=== PATIENT | male | born 1970 | race African-American/Black ===

== ENCOUNTER 2022-10-19 13:30 | Outpatient (REF) | payer MEDICAID, SELFPAY ==
--- NOTE | ~2022-10-19 | XR_ITS ---
EXAMINATION: XR LUMBOSACRAL SPINE CLINICAL INFORMATION: Low back pain. COMPARISON: 10/23/2021 TECHNIQUE: Three views of the lumbosacral spine. FINDINGS: There are 5 nonrib-bearing lumbar vertebra. L5 pars defects are present. No significant spondylolisthesis is seen. There is significant disc space narrowing seen at the L5-S1 level with marginal sclerosis and spurring. There appears be some mild disc space narrowing at the L3-L4 level with marginal spurring. Facet arthropathy is seen L4-L5 on the right and L5-S1 bilaterally. Pedicles intact. Sacroiliac joints unremarkable. No significant change from previous study. XR/XR lumbar spine 2-3V IMPRESSION: Bilateral L5 pars defects. Lumbar spondylosis as described.
== END 2022-10-19 13:31 | disposition home or self-care (01) ==
LOC: HO.XRAY 13:30
PROVIDERS: PCP Internal Medicine; Visit Provider Internal Medicine
DX: M54.50 Low back pain, unspecified (principal); M79.606 Pain in leg, unspecified
CPT/HCPCS: 72100

== ENCOUNTER 2022-11-12 15:22 | Outpatient (REF) | payer MEDICAID, SELFPAY ==
[2022-11-12 19:28] LABS: Vitamin D 25-OH Total 24.8 ng/mL (>30)
== END 2022-11-12 15:23 | disposition home or self-care (01) ==
LOC: HO.CHCLDS 15:22
PROVIDERS: Visit Provider Internal Medicine
DX: M43.06 Spondylolysis, lumbar region (principal)
CPT/HCPCS: 36415; 82306

== ENCOUNTER 2022-11-17 10:18 | Outpatient (REF) | payer MEDICAID, SELFPAY ==
--- NOTE | ~2022-11-17 | MM_ITS ---
EXAMINATION: BONE DENSITOMETRY CLINICAL INDICATION: Spondylolysis, lumbar region. COMPARISON: This is the patient's baseline examination. TECHNIQUE: Using a [employer] DXA System (software version: 13.1) manufactured by [employer], dual-energy x-ray absorptiometry was performed of the lumbar spine and left hip. The images are of good technical quality. Summary results are attached. FINDINGS: LEFT FEMUR, NECK: BMD 1.074 g/cm2, Z-score -0.4, T-score 0.0, normal. LEFT FEMUR, TOTAL: BMD 1.188 g/cm2, Z-score -0.1, T-score 0.6, normal. AP SPINE L1-L2 (excluding L3 and L4): The data of L1-L4 has been changed to exclude the L3 and L4 vertebral bodies, because degenerative sclerosis at these levels may cause overestimation of lumbar spine density. BMD 1.479 g/cm2, Z-score 1.6, T-score 2.3, normal. IDENTIFIED RISK FACTORS: Low calcium intake, history of fracture (adult), alcohol 3 or more units per day. HISTORY OF FRACTURE: Other. MEDICATIONS: Vitamin D. MM/XR DEXA axial skeleton IMPRESSION: 1. DIAGNOSIS: Normal bone density based on the lowest T-score value of 0.0 in the femoral neck applying World Health Organization criteria. 2. 10-YEAR FRACTURE RISK PREDICTION, FRAX: According to the guidelines, FRAX calculation should only be performed on patients in the osteopenia bone density category. Therefore, FRAX was not performed on this patient. 3. Treatment Recommendations: NOF guidelines recommend consideration for treatment in postmenopausal women and men age 50 and older presenting with the following: -A hip or vertebral (clinical or morphometric) fracture. -T-score less than or equal to -2.5 at the femoral neck or spine after appropriate evaluation to exclude secondary causes. -Low bone mass at the hip or spine and a 10-year fracture probability by FRAX of greater than or equal to 3% for hip fracture or greater than or equal to 20% for major osteoporotic fracture based on the [place] adapted WHO algorithm. 4. Other Recommendations: All treatment decisions require clinical judgment and consideration of individual patient factors, including patient preferences, comorbidities, previous drug use, risk factors not captured in the FRAX model (e.g. frailty, falls, vitamin D deficiency, increased bone turnover, interval significant decline in bone density) and possible under or overestimation of fracture risk by FRAX. FUTURE SCAN RECOMMENDATION: People with diagnosed cases of osteoporosis or at high risk for fracture should have regular bone mineral density tests. For patients eligible for Medicare, routine testing is allowed once every 2 years. The testing frequency can be increased to one year for patients who have rapidly progressing disease, those who are receiving or discontinuing medical therapy to restore bone mass, or have additional risk factors.
== END 2022-11-17 10:19 | disposition home or self-care (01) ==
LOC: HO.MAMMO 10:18
PROVIDERS: PCP Internal Medicine; Visit Provider Internal Medicine
DX: Z13.820 Encounter for screening for osteoporosis (principal); M43.06 Spondylolysis, lumbar region
CPT/HCPCS: 77080

== ENCOUNTER 2023-03-31 15:24 | Outpatient (REF) | payer MEDICAID, SELFPAY ==
[2023-04-01 08:49] LABS: Syphilis Screen Nonreactive (Nonreactive)
[2023-04-01 09:13] LABS: HBsAGNum1 0.22 S/CO (0.00-0.99); HIV AB/AG Nonreactive (Nonreactive); HIV Num 1 0.05 S/CO (0.00-0.99); Hepatitis B Surface Antigen Negative (Negative); ~HepC Num1 0.14 S/CO (0.00-0.79); ~Hepatitis C Antibody Nonreactive (Nonreactive)
== END 2023-03-31 15:25 | disposition home or self-care (01) ==
LOC: HO.CHCLDS 15:24
PROVIDERS: Visit Provider Family Medicine
DX: Z11.4 Encounter for screening for human immunodeficiency virus [HIV] (principal); Z20.2 Contact with and (suspected) exposure to infections with a predominantly sexual mode of transmission
CPT/HCPCS: 36415; 86780; 86803; 87340; 87389; 87661

== ENCOUNTER 2023-03-31 16:31 | Outpatient (REF) | payer MEDICAID, SELFPAY ==
[2023-04-05 23:44] LABS: Trichomonas vag. RNA Ur Male Not Detected (Not Detected)
== END 2023-03-31 16:32 | disposition home or self-care (01) ==
LOC: HO.CHCLNP 16:31
PROVIDERS: Visit Provider Family Medicine
DX: Z20.2 Contact with and (suspected) exposure to infections with a predominantly sexual mode of transmission (principal)
CPT/HCPCS: 36415; 87661

== ENCOUNTER 2023-07-28 09:36 | Outpatient (REF) | payer MEDICAID, SELFPAY ==
--- NOTE | ~2023-07-28 | XR_ITS ---
EXAMINATION: XR BILATERAL HIPS CLINICAL INFORMATION: Bilateral hip pain. COMPARISON: Lumbar spine radiographs of 10/19/2022. Hip and lumbar spine radiographs of 10/23/2021. TECHNIQUE: AP and frog-lateral views of each hip. FINDINGS: Degenerative changes in the imaged lower lumbar spine. Left hip alignment is preserved. Minimal degenerative changes in the left hip. Mild degenerative changes in the right hip with mild joint space narrowing and hypertrophic change. Mild degenerative changes in the bilateral sacroiliac joints. XR/XR hip LT min 2V IMPRESSION: 1. Mild degenerative changes in the right hip. 2. Minimal degenerative changes in the left hip.
--- NOTE | ~2023-07-28 | XR_ITS ---
EXAMINATION: XR BILATERAL HIPS CLINICAL INFORMATION: Bilateral hip pain. COMPARISON: Lumbar spine radiographs of 10/19/2022. Hip and lumbar spine radiographs of 10/23/2021. TECHNIQUE: AP and frog-lateral views of each hip. FINDINGS: Degenerative changes in the imaged lower lumbar spine. Left hip alignment is preserved. Minimal degenerative changes in the left hip. Mild degenerative changes in the right hip with mild joint space narrowing and hypertrophic change. Mild degenerative changes in the bilateral sacroiliac joints. XR/XR hip RT min 2V IMPRESSION: 1. Mild degenerative changes in the right hip. 2. Minimal degenerative changes in the left hip.
--- NOTE | ~2023-07-28 | FL_ITS ---
EXAMINATION: XR FLUOROSCOPY UPPER GI WITH AIR CLINICAL INFORMATION: Reflux. Midsternal discomfort while swallowing COMPARISON: None TECHNIQUE: Fluoroscopic air contrast upper GI examination was performed utilizing standard techniques with thin and thick barium and effervescent granules. Numerous spot images were obtained. FINDINGS: Dual and single contrast images of the esophagus demonstrate normal caliber, contour, and mucosal pattern. No evidence of stricture, mass, or ulcerations identified. Esophageal peristalsis was mildly disorganized. There is smooth mild narrowing of the GE junction that may represent either mild achalasia versus a mild benign stricture. No evidence of hiatus hernia identified. Gastroesophageal reflux present up to the thoracic inlet. Dual contrast and single contrast images of the stomach demonstrated a normal contour. Multiple small areas of contrast pooling are noted throughout the body and fundus of the stomach that may represent small superficial aphthous ulcers. No masses are present. Mild rugal fold thickening. There is prominence of the mucosal area gastricae. Contrast freely passed into the gastric antrum and duodenal bulb without delay. Single and air-contrast images of the duodenal bulb demonstrate no abnormality. The duodenal sweep has a normal appearance, course, and mucosal fold appearance. No malrotation. The imaged proximal jejunum has a normal fold pattern and caliber. FLUOROSCOPY TIME: 3 minutes 20 seconds Number of Spot Images: 12 Number of Cine: 9 DOSE AREA PRODUCT: 2390 uGy-m2 (microgray-meter squared) FL/FL barium swallow IMPRESSION: 1. There is mild narrowing of the GE junction which may represent mild achalasia. A short segment benign stricture could have a similar appearance. 2. Mild esophageal dysmotility. 3. Multiple small areas of contrast pooling in the body and fundus of the stomach that may represent small superficial aphthous ulcers. Thickening of the rugal gastric folds. Prominence of the mucosal area gastricae. Findings suggest erosive gastritis. Recommend correlation with EGD. This procedure was performed by Turner Gamino PA-C, and supervised by Dr. Hobson
== END 2023-07-28 09:37 | disposition home or self-care (01) ==
LOC: HO.XRAY 09:36
PROVIDERS: PCP Internal Medicine; Visit Provider Internal Medicine
DX: R13.10 Dysphagia, unspecified (principal); M25.551 Pain in right hip; M25.552 Pain in left hip
CPT/HCPCS: 73502; 74220

== ENCOUNTER → 2023-07-28 09:40 | Outpatient (BNV) | payer MEDICAID, SELFPAY | PROVIDERS: PCP Internal Medicine; Visit Provider Physician Assistant Surgical | DX: R13.10 Dysphagia, unspecified (principal); K21.9 Gastro-esophageal reflux disease without esophagitis | CPT/HCPCS: 74221 ==

== ENCOUNTER 2023-10-05 09:24 | Outpatient (REF) | payer MEDICAID, SELFPAY ==
[2023-10-05 11:48] LABS: MANUAL DIFF FLAG NO
[2023-10-05 11:53] LABS: Basophils Percent Auto 0.6 % (0-2); Eosinophils Absolute Auto 0.3 X10*3/uL (0.0-0.4); Eosinophils Percent Auto 6.3 % (0-4); Hematocrit 40.4 % (42.0-52.0); Hemoglobin 13.7 g/dl (14.0-18.0); Imm Gran Abs Auto 0.01 X10*3/uL (0.00-0.03); Imm Gran Pct Auto 0.2 % (0.0-0.4); Lymphocytes Absolute Auto 2.6 X10*3/uL (1.2-4.9); Lymphocytes Percent Auto 55.4 % (20-40); Mean Corpuscular HGB Conc 33.9 g/dl (31.0-36.0); Mean Corpuscular Hemoglobin 29.8 pg (27.0-33.0); Mean Corpuscular Volume 87.8 fL (80.0-98.0); Mean Platelet Volume 11.3 fL (9.4-12.4); Monocytes Absolute Auto 0.4 X10*3/uL (0.1-1.2); Monocytes Percent Auto 9.1 % (2-11); Neutrophils Absolute Auto 1.4 x10*3/uL (2.0-8.3); Neutrophils Percent Auto 28.4 % (45-73); Platelet Count 234 X10*3/uL (160-400); Red Cell Distribution Width 12.9 % (11.0-16.0); White Blood Count 4.8 X10*3/uL (4.8-10.8)
== END 2023-10-05 09:25 | disposition home or self-care (01) ==
LOC: HO.CHCLDS 09:24
PROVIDERS: Visit Provider Internal Medicine
DX: D50.9 Iron deficiency anemia, unspecified (principal)
CPT/HCPCS: 36415; 85025

== ENCOUNTER 2024-01-05 09:57 | Outpatient (REF) | payer MEDICAID, SELFPAY ==
[2024-01-05 14:26] LABS: MANUAL DIFF FLAG NO
[2024-01-05 14:33] LABS: Appearance Urine Clear; Color Urine Yellow; Glucose Urine UA Negative (Negative); Leukocyte Esterase Urine Negative (Negative); Nitrite Urine Negative (Negative); Urine Blood Negative (Negative); Urine Ketones Negative (Negative); Urine Protein Negative (Neg-Trace)
[2024-01-05 14:34] LABS: Basophils Percent Auto 1.1 % (0-2); Eosinophils Absolute Auto 0.2 X10*3/uL (0.0-0.4); Eosinophils Percent Auto 5.7 % (0-4); Hematocrit 39.8 % (42.0-52.0); Hemoglobin 13.5 g/dl (14.0-18.0); Lymphocytes Absolute Auto 2.1 X10*3/uL (1.2-4.9); Lymphocytes Percent Auto 56.3 % (20-40); Mean Corpuscular HGB Conc 33.9 g/dl (31.0-36.0); Mean Corpuscular Volume 88.4 fL (80.0-98.0); Mean Platelet Volume 11.6 fL (9.4-12.4); Monocytes Absolute Auto 0.3 X10*3/uL (0.1-1.2); Monocytes Percent Auto 8.5 % (2-11); Neutrophils Percent Auto 28.4 % (45-73); Platelet Count 282 X10*3/uL (160-400); Red Cell Distribution Width 12.8 % (11.0-16.0); White Blood Count 3.7 X10*3/uL (4.8-10.8)
[2024-01-05 14:36] LABS: Bacteria Urine None Seen (None Seen); Hyaline Casts Urine 0-2 /LPF (0-2); RBC Urine 0-2 /HPF (0-2); Squamous Epithelial Cell Urine 0-2 /HPF (0-2); WBC Urine 0-5 /HPF (0-5)
[2024-01-06 08:10] LABS: HIV AB/AG Nonreactive (Nonreactive); HIV Num 1 0.04 S/CO (0.00-0.99); ~Hepatitis C Antibody Nonreactive (Nonreactive)
[2024-01-06 08:16] LABS: Syphilis Screen Nonreactive (Nonreactive)
== END 2024-01-05 09:58 | disposition home or self-care (01) ==
LOC: HO.CHCLDS 09:57
PROVIDERS: Visit Provider Internal Medicine
DX: D50.9 Iron deficiency anemia, unspecified (principal); Z11.3 Encounter for screening for infections with a predominantly sexual mode of transmission
CPT/HCPCS: 36415; 81001; 85025; 86780; 86803; 87389

== ENCOUNTER 2024-03-06 14:09 | Outpatient (REF) | payer MEDICAID, SELFPAY ==
[2024-03-07 16:29] LABS: Adenovirus F 40/41 Not Detected (Not Detect.); Astrovirus Not Detected (Not Detect.); Campylobacter Not Detected (Not Detect.); Cryptosporidium Not Detected (Not Detect.); Cyclospora cayetanensis Not Detected (Not Detect.); E. coli EAEC Not Detected (Not Detect.); E. coli EPEC Not Detected (Not Detect.); E. coli ETEC Not Detected (Not Detect.); E. coli STEC Not Detected (Not Detect.); Entamoeba histolytica Not Detected (Not Detect.); Giardia lamblia Not Detected (Not Detect.); Norovirus GI/GII Not Detected (Not Detect.); Plesiomonas shigelloides Not Detected (Not Detect.); Rotavirus A Not Detected (Not Detect.); Salmonella Not Detected (Not Detect.); Sapovirus Not Detected (Not Detect.); Shigella sp./EIEC Not Detected (Not Detect.); Vibrio Not Detected (Not Detect.); Vibrio Cholerae Not Detected (Not Detect.); Yersinia enterocolitica Not Detected (Not Detect.)
== END 2024-03-06 14:10 | disposition home or self-care (01) ==
LOC: HO.CHCLNP 14:09
PROVIDERS: Visit Provider Internal Medicine
DX: A09 Infectious gastroenteritis and colitis, unspecified (principal)
CPT/HCPCS: 87507

== ENCOUNTER 2024-03-09 15:18 | Outpatient (REF) | payer MEDICAID, SELFPAY ==
[2024-03-09 18:08] LABS: Alanine Aminotransferase 21 U/L (0-40); Alkaline Phosphatase 93 U/L (39-117); Aspartate Amino Transferase 28 U/L (5-37); Bilirubin Direct 0.2 mg/dL (0.0-0.5); Bilirubin Total 0.4 mg/dL (0.0-1.0); Total Protein 6.9 g/dL (6.5-8.0)
== END 2024-03-09 15:19 | disposition home or self-care (01) ==
LOC: HO.CHCLDS 15:18
PROVIDERS: Visit Provider Pediatrics
DX: R10.11 Right upper quadrant pain (principal)
CPT/HCPCS: 36415; 80076

== ENCOUNTER 2024-03-17 11:04 | Outpatient (REF) | payer MEDICAID, SELFPAY ==
--- NOTE | ~2024-03-17 | US_ITS ---
EXAMINATION: US ABDOMEN LIMITED CLINICAL INFORMATION: Right upper quadrant pain. Rule out gallstones. COMPARISON: None available. TECHNIQUE: Real-time imaging of the right upper quadrant abdominal viscera. FINDINGS: PANCREAS: The visualized portion of the pancreas head and body are normal, portion of the pancreatic body and tail, not visualized are obscured by bowel gas. LIVER: Normal. The liver is normal in size. The liver contour is normal. Parenchymal echogenicity is normal. No focal hepatic lesion. There is no intrahepatic biliary duct dilatation seen. GALLBLADDER: Normal. The gallbladder is physiologically distended without evidence of stones, sludge, polyps, wall thickening or pericholecystic fluid. COMMON BILE DUCT: Normal in caliber measuring 0.6 cm in diameter. RIGHT KIDNEY: Echogenic mass in the right kidney 8 mm probably an AML. No hydronephrosis. No renal calculi or focal parenchymal lesions. The kidney measures 11.6 cm in maximum dimension. FREE FLUID: None. US/US abdomen limited IMPRESSION: 1. No ultrasound evidence of gallbladder disease or gallstones. 2. 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 If patient is high-risk consider correlation with CT scan or MRI, otherwise one year follow-up ultrasound recommended. Electronically signed by: Yazmin Santiago MD 03/19/2024 05:52 PM ARELIS POWELL
== END 2024-03-17 11:05 | disposition home or self-care (01) ==
LOC: HO.US 11:04
PROVIDERS: PCP Internal Medicine; Visit Provider Pediatrics
DX: R10.11 Right upper quadrant pain (principal)
CPT/HCPCS: 76705

== ENCOUNTER 2024-12-01 14:11 | Outpatient (REF) | payer MEDICAID, SELFPAY ==
--- OUTSIDE RECORDS SUMMARY | 2024-12-01 14:13 | XMS_ITS | Encounter Summary ---
Author Organization [employer] Address [address] [facility] [address] [place] [address] Care Team Providers Care Beef Splitter Name Role Phone Rgio Oquendo MD Primary Care Provider [phone] Encounter Details Date Type Department Care Team (Late st Contact Info) Description 03/07/2024 Orders Only [facility]S [address] [place] [address] ProviderLeonor MD Social History Tobacco Use Types Packs/Day Years Used Date Smoking Tobacco: Some Days Cigarettes 0.3 4 Passive Smoke Exposure: Never Smokeless Tobacco: Never Alcohol Use Standard Drinks/Week Comments Defer 0 (1 standard drink = 0.6 oz pur e alcohol) Depression Answer Date Recorded Patient Health Questionnaire-9 Score 0 10/15/2022 Housing Stability Answer Date Recorded What is your housing situation today? I have karljorden smith 03/01/[address] you li ve. Do you have problems with any of the following? None of the above 03/01/2023 Food Insecurity Answer Date Recorded Within the past 12 months, y ou worried that your food would run out before you got money to buy more: Never True 03/01/2023 Within the past 12 months,th e food you bought just didn't last and you didn't have enough money to get more: Never True Transportation Answer Date Recorded In the past 12 months, has l ack of transportation kept you from medical appts, meetings, work or from getting things needed for daily living? No 03/01/2023 Utilities Answer Date Recorded In the past 12 months, has t he electric, gas, oil or water company threatened to shut off services in your home? No 03/01/2023 Depression Answer Date Recorded Patient Health Questionnaire-2 Score 0 10/15/2022 Sex and Gender Information Value Date Recorded Sex Assigned at Male 03/02/2022 10:29 AM EDT Legal Sex Male 10:29 AM EDT Gender Identity Choose not to disclose 10:29 AM EDT Sexual Orientation Choose not to disclose 2021 10:29 AM EDT documented as of this encounter Plan of Treatment Upcoming Encounters Date Type Department Care Team (Late st Contact Info) Description 01/30/2025 9:00 AM EDT Office Visit [facility] [address] [place] [address] Rigo Oquendo MD [address] [place] [address] documented as of this encounter Procedures Procedure Name Priority Date/Time Associated Diagnosis Comments SURGICAL PATHOLOGY Routine 02/07/2024 9:37 AM EDT documented in this encounter Results * Surgical Pathology (02/07/2024 9:37 AM EDT) us Historical Provider LAB PATHOLOGY ORDERABLES Final Result documented in this encounter Visit Diagnoses Not on filedocumented in this encounter Additional Health Concerns Assessment Noted Time PHQ-9 Depression Total Score: 0 10/16/19 23 9:36 AM EDT documented as of this encounter Care Teams Beef Splitter Relationship Specialty Start Date End Date Rigo Oquendo MD [address] [place] [address] PCP - General Internal Medicine 04/16/20 documented as of this encounter
--- OUTSIDE RECORDS SUMMARY | 2024-12-01 14:13 | XMS_ITS | Clinical Summary ---
Author Organization [facility] ity Address [address] [place] [address] Care Team Providers Care Rn Plasma Center Name Role Phone Unavailable Primary Care Provider Unavailabl e Social History Tobacco Use Types Packs/Day Years Used Date Smoking Tobacco: Never Assessed Sex and Gender Information Value Date Recorded Sex Assigned at Not on file Legal Sex Male 5:46 PM EST Gender Identity Not on file Sexual Orientation Not on file Plan of Treatment Health Maintenance Due Date Last Done Comments DTaP,Tdap,and Td Vaccines (1 - Tdap) 1989 Hepatitis B Vaccines (1 of 3 - 19+ 3-dose series) 1989 Pneumococcal Vaccine: 50+ Ye ars (1 of 1 - PCV) 2020 Zoster Vaccines (1 of 2) 2020 COVID-19 Vaccine ( - 2023-2 5 season) 2024 Depression Screening 05/03/2024 Influenza Vaccine (#1) 2025 HIB Vaccines Aged Out No longer eligi ble based on patient's age to complete this topic HPV Vaccines Aged Out No longer eligi ble based on patient's age to complete this topic Hepatitis A Vaccines Aged Out No long er eligible based on patient's age to complete this topic IPV Vaccines Aged Out No longer eligi ble based on patient's age to complete this topic MMR Vaccines Aged Out No longer eligi ble based on patient's age to complete this topic Meningococcal ACWY Vaccine Aged Out N o longer eligible based on patient's age to complete this topic Meningococcal B Vaccine Aged Out No l onger eligible based on patient's age to complete this topic RSV Immunization Patients Un barbie 20 months Aged Out No longer eligible b ased on patient's age to complete this topic Varicella Vaccines Aged Out No longer eligible based on patient's age to complete this topic
[2024-12-01 15:33] LABS: Appearance Urine Clear; Glucose Urine UA Negative (Negative); PH 6.5 (5.0-9.0); Specific Gravity - Urine 1.020 (1.005-1.025)
[2024-12-02 03:33] LABS: HIV Num 1 0.05 S/CO (0.00-0.99); ~HepC Num1 0.16 S/CO (0.00-0.79); ~Hepatitis C Antibody Nonreactive (Nonreactive)
== END 2024-12-01 14:12 | disposition home or self-care (01) ==
LOC: HO.CHCLDS 14:11
PROVIDERS: Visit Provider Internal Medicine
DX: Z11.3 Encounter for screening for infections with a predominantly sexual mode of transmission (principal); Z11.4 Encounter for screening for human immunodeficiency virus [HIV]; Z11.59 Encounter for screening for other viral diseases
CPT/HCPCS: 36415; 81003; 86592; 86803; 87389

== ENCOUNTER 2024-12-04 12:29 | Outpatient (REF) | payer MEDICAID, SELFPAY ==
--- NOTE | ~2024-12-04 | XR_ITS ---
EXAMINATION: XR NASAL BONES HISTORY: H/o Fracture of the nasal bones. Pt is now c/o heavy Snoring. COMPARISON: There are no prior studies available for comparison. FINDINGS: Three views of the nasal bones are submitted. No acute fracture is seen. The visualized paranasal sinuses are clear. XR/XR nasal bones min 3V IMPRESSION: No evidence of acute fracture of the nasal bones. Electronically signed by: Julio Walsh MD 12/04/2024 12:51 PM EDT
--- OUTSIDE RECORDS SUMMARY | 2024-12-04 12:58 | XMS_ITS | Clinical Summary ---
Author Organization [facility] ity Address [address] [place] [address] Care Team Providers Care Facing Grinder Name Role Phone Unavailable Primary Care Provider [...]
--- OUTSIDE RECORDS SUMMARY | 2024-12-04 12:58 | XMS_ITS | Encounter Summary ---
Author Organization [employer] Address [address] [facility] [address] [place] [address] Care Team Providers Care Corporate Fitness Program Coordinator Name Role Phone Rigo Oquendo MD Primary Care Provider [phone] Encounter Details Date Type Department Care Team (Late st Contact Info) Description 03/07/2024 Orders Only [facility] & PEDS [address] [place] [address] Provider, MD Leonor Social History Tobacco Use Types Packs/Day Years [...] 01/30/2025 9:00 AM EDT Office Visit [facility] MED & PEDS [address] [place] [address] Rigo Oquendo MD [address] [place] [address] documented as of this encounter Procedures Procedure [...] documented as of this encounter Care Teams Corporate Fitness Program Coordinator Relationship Specialty Start Date End Date Rigo Oquendo MD [address] [place] [address] PCP - General Internal Medicine 04/16/20 documented as of this encounter
== END 2024-12-04 12:30 | disposition home or self-care (01) ==
LOC: HO.XRAY 12:29
PROVIDERS: PCP Internal Medicine; Visit Provider Internal Medicine
DX: R06.83 Snoring (principal); R09.81 Nasal congestion
CPT/HCPCS: 70160

== ENCOUNTER → 2024-12-04 12:34 | Outpatient (BNV) | payer MEDICAID, SELFPAY | PROVIDERS: PCP Internal Medicine; Visit Provider Radiology Diagnostic Radiology | DX: R09.81 Nasal congestion (principal); R06.83 Snoring | CPT/HCPCS: 70160 ==

== ENCOUNTER 2025-03-07 11:48 | Outpatient (REF) | payer MEDICAID, SELFPAY ==
--- NOTE | ~2025-03-07 | XR_ITS ---
EXAMINATION: XR LUMBAR SPINE 2-3 VIEWS HISTORY: atraumatic left low back pain COMPARISON: Comparison is made with the prior examination dated 10/19/2022. FINDINGS: AP, lateral, and coned down views of the lumbar spine are submitted. Osseous mineralization is normal. Five nonrib-bearing lumbar vertebral bodies are identified, maintaining normal height without evidence of fracture. There are probable pars defects at the L5 level. There is slight spondylolisthesis of L5 on S1. There is moderate degenerative disc disease at the L3-4, L4-5, and L5-S1 levels with disc space narrowing and osteophyte formation. The visualized paraspinal soft tissues are unremarkable. XR/XR lumbar spine 2-3V IMPRESSION: Slight spondylolisthesis of L5 on S1. Moderate degenerative disc disease of the lower lumbar spine. Electronically signed by: Julio Walsh MD 03/07/2025 01:27 PM [facility]
--- OUTSIDE RECORDS SUMMARY | 2025-03-07 14:00 | XMS_ITS | Encounter Summary ---
Author Organization [employer] Address [address] [place] [address] [address] [place] [address] Care Team Providers Care Weight Loss Centre Manager Name Role Phone Rigo Oquendo MD Primary Care Provider [phone] Reason for Referral * Consultation (Routine) - Pending Review Specialty Diagnoses / Procedures Referred By Contac t Referred To Contact Physical Therapy Diagnoses Acute left-sided low back pain without sciatica Bhaskar Fleming MD [address] [place] [address] Phone: tel: fax: Referral ID Status Reason Start Date Expiration Date Visits Requested Visits Authorized [id number] Pending Review Specialty Services Required 03/07/2025 03/07/2026 1 1 Reason for Visit * Reason Comments back pain Encounter Details Date Type Department Care Team (Late st Contact Info) Description 03/07/2025 2:00 PM EST Office Visit [facility] [address] [place] [address] [id number] Acute left-sided low back pain without sciatica (Primary Dx); Smoking history Social History Tobacco Use Types Packs/Day Years Used Date Smoking Tobacco: Some Days Cigarettes 0.3 4 Passive Smoke Exposure: Never Smokeless Tobacco: Never Alcohol Use Standard Drinks/Week Comments Defer 0 (1 standard drink = 0.6 oz pur e alcohol) Depression Answer Date Recorded Patient Health Questionnaire-9 Score 0 08/14/2024 Patient Health Questionnaire-9 Score 0 08/14/2024 Last PHQ-9: Questionnaire Data Not on file 0 08/14/2024 Housing Stability Answer Date Recorded What is your housing situation today? I have karl smith 08/07/[address] you li ve. Do you have problems with any of the following? None of the above 08/07/2024 Food Insecurity Answer Date Recorded Within the past 12 months, y ou worried that your food would run out before you got money to buy more: Never True 08/07/2024 Within the past 12 months,th e food you bought just didn't last and you didn't have enough money to get more: Never True 10/2024 Transportation Answer Date Recorded In the past 12 months, has l ack of transportation kept you from medical appts, meetings, work or from getting things needed for daily living? No 08/07/2024 Utilities Answer Date Recorded In the past 12 months, has t he electric, gas, oil or water company threatened to shut off services in your home? No 08/07/2024 Depression Answer Date Recorded Patient Health Questionnaire-2 Score 0 08/14/2024 Internet Access Answer Date Recorded Internet Access Q1 Yes 08/07/2024 Internet Access Q2 Not on file 08/07/2024 Sex and Gender Information Value Date Recorded Sex Assigned at Male 03/02/2022 10:29 AM EDT Legal Sex Male 10:29 AM EDT Gender Identity Choose not to disclose 10:29 AM EDT Sexual Orientation Choose not to disclose 2021 10:29 AM EDT documented as of this encounter Last Filed Vital Signs Vital Sign Reading Time Taken Comments Blood Pressure 119/79 03/07/2025 11:35 AM EST Pulse 81 03/07/2025 11:35 AM EST Temperature 36.5 C (97.7 F) 03/07/2025 11:35 AM EST Respiratory Rate 16 03/07/2025 11:35 AM EST Oxygen Saturation 98% 03/07/2025 11:35 AM EST Inhaled Oxygen Concentration - - Weight 89.9 kg (198 lb 3.2 oz) 03/07/2025 11:35 AM EST Height 175.3 cm (5' 9 ) 03/07/2025 11:35 AM EST Body Mass Index 29.27 03/07/2025 11:35 AM EST documented in this encounter Plan of Treatment Scheduled Referrals Name Type Priority Associated Diagnoses Orde r Schedule Referral to Physical Therapy Outpatient Referral Routine Acute left-sided low back pain without sciatica Expected: 03/07/2025 (Approximate), Expires: 03/07/2026 documented as of this encounter Procedures Procedure Name Priority Date/Time Associated Diagnosis Comments XR LUMBAR SPINE 2-3 VIEWS Routine 03/07/2025 12:23 PM EST Acute left-sided low back pain without sciatica documented in this encounter Results * XR Lumbar Spine 2-3 Views (03/07/2025 12:23 PM EST) Anatomical Region Laterality Modality Spine, L-spine Radiographic Anni ging 03/07/2025 12:2 3 PM EST Narrative 03/07/2025 1:30 PM EST [address] [address] XRay Report Signed Patient: John Cochran MR#: [id number] 0301 : 1970 Acct:[id number] Age/Sex: 54 / M ADM Date: 03/07/25 Loc: HO.HHCX Attending Dr: Bhaskar Fleming MD Ordering Physician: BHASKAR FLEMING MD Date of Service: 03/07/25 Procedure(s): XR lumbar spine 2-3V Accession Number(s): [id number] cc: BHASKAR FLEMING MD; Rigo Oquendo MD Reason for Exam: atraumatic left low back pain EXAMINATION: XR LUMBAR SPINE 2-3 VIEWS HISTORY: atraumatic left low back pain COMPARISON: Comparison is made with the prior examination dated 10/19/2022. FINDINGS: AP, lateral, and coned down views of the lumbar spine are submitted. Osseous mineralization is normal. Five nonrib-bearing lumbar vertebral bodies are identified, maintaining normal height without evidence of fracture. There are probable pars defects at the L5 level. There is slight spondylolisthesis of L5 on S1. There is moderate degenerative disc disease at the L3-4, L4-5, and L5-S1 levels with disc space narrowing and osteophyte formation. The visualized paraspinal soft tissues are unremarkable. XR/XR lumbar spine 2-3V IMPRESSION: Slight spondylolisthesis of L5 on S1. Moderate degenerative disc disease of the lower lumbar spine. Electronically signed by: Julio Walsh MD 03/07/2025 01:27 PM EST RP Dictated By: Julio Walsh MD Signed By: <Electronically signed by Julio Walsh MD in OV> 03/07/25 1327 DD/ 1223 TD/TT: 03/07/25 1230 Equine Dentist: Procedure Note Donotuseinterpreter, Image - 03/07/[address] [address] XRay Report Signed Patient: John Cochran LMR#: [id number] 0301 : 1970Acct:[id number] Age/Sex: 54 / MADM Date: 03/07/25 Loc: HO.HHCX Attending Dr: Bhaskar Fleming MD Ordering Physician: BHASKAR FLEMING MD Date of Service: 03/07/25 Procedure(s): XR lumbar spine 2-3V Accession Number(s): [id number] cc: BHASKAR FLEMING MD; Rigo Oquendo MD Reason for Exam: atraumatic left low back pain EXAMINATION: XR LUMBAR SPINE 2-3 VIEWS HISTORY: atraumatic left low back pain COMPARISON: Comparison is made with the prior examination dated 10/19/2022. FINDINGS: AP, lateral, and coned down views of the lumbar spine are submitted. Osseous mineralization is normal. Five nonrib-bearing lumbar vertebral bodies are identified, maintaining normal height without evidence of fracture. There are probable pars defects at the L5 level. There is slight spondylolisthesis of L5 on S1. There is moderate degenerative disc disease at the L3-4, L4-5, and L5-S1 levels with disc space narrowing and osteophyte formation. The visualized paraspinal soft tissues are unremarkable. XR/XR lumbar spine 2-3V IMPRESSION: Slight spondylolisthesis of L5 on S1. Moderate degenerative disc disease of the lower lumbar spine. Electronically signed by: Julio Walsh MD 03/07/2025 01:27 PM EST RP Dictated By: Julio Walsh MD Signed By: <Electronically signed by Julio Walsh MD in OV> 03/07/25 1327 DD/ 1223 TD/TT: 03/07/25 1230 Equine Dentist: Bhaskar Fleming MD IMG XR PROCEDURES Final Result documented in this encounter Visit Diagnoses Diagnosis Acute left-sided low back pain without sciatica- Primary Smoking history documented in this encounter Additional Health Concerns Assessment Noted Time PHQ-9 Depression Total Score: 0 08/15/19 25 10:27 AM EDT documented as of this encounter Care Teams Weight Loss Centre Manager Relationship Specialty Start Date End Date Rigo Oquendo MD [address] [place] [phone] PCP - General Internal Medicine 04/16/20 documented as of this encounter
--- OUTSIDE RECORDS SUMMARY | 2025-03-07 14:28 | XMS_ITS | Clinical Summary ---
Author Organization [facility] it Address [address] [place] [address] Care Team Providers Care Economics Consultant Name Role Phone Unavailable Primary Care Provider [...] 2020 Zoster Vaccines (1 of 2) 2020 Depression Screening 05/03/2024 COVID-19 Vaccine (1 - 2023-2 5 season) 2025 Influenza Vaccine (#1) 2025 RSV Immunization Adult Patie nts (1 - 1-dose 75+ series) 2045 HIB Vaccines Aged Out No longer eligi [...]
--- OUTSIDE RECORDS SUMMARY | 2025-03-07 14:28 | XMS_ITS | Encounter Summary ---
Author Organization [employer] Address 75 [facility] 7t [place] [address] Care Team Providers Care Senior Sales Consultant Name Role Phone Rigo Oquendo MD Primary Care Provider [phone] Encounter Details Date Type Department Care Team (Late st Contact Info) Description 03/07/2024 Orders Only [facility] & PEDS [address] [place] [address] ProviderLeonor MD Social History Tobacco Use Types [...] as of this encounter Plan of Treatment Not on file documented as of this encounter Procedures Procedure Name Priority Date/Time Associated Diagnosis Comments SURGICAL PATHOLOGY Routine 02/07/2024 9:37 AM EDT documented in this encounter Results * Surgical Pathology (02/07/2024 9:37 AM EDT) Historical Provider LAB PATHOLOGY ORDERABLES Final Result documented in this encounter Visit Diagnoses Not on filedocumented in this encounter Additional Health Concerns Assessment Noted Time PHQ-9 Depression Total Score: 0 10/16/19 23 9:36 AM EDT documented as of this encounter Care Teams Senior Sales Consultant Relationship Specialty Start Date End Date Rigo Oquendo MD [address] [place] [id number] PCP - General Internal Medicine 04/16/20 documented as of this encounter
--- OUTSIDE RECORDS SUMMARY | 2025-03-07 14:28 | XMS_ITS | Encounter Summary ---
Author Organization [employer] Address 75 [facility] 7t [place] [address] Care Team Providers Care Power Reactor Supervisor Name Role Phone Rigo Oquendo MD Primary Care Provider [phone] Encounter Details Date Type Department Care Team (Latest Contact Info) Description 03/07/2025 Travel Social History Tobacco Use Types Packs/Day Years [...] housing situation today? I have karljorden smith 08/07/[address] you [...] on file documented as of this encounter Visit Diagnoses Not on filedocumented in this encounter Additional Health Concerns Assessment Noted Time PHQ-9 Depression Total Score: 0 08/15/19 25 10:27 AM EDT documented as of this encounter Care Teams Power Reactor Supervisor Relationship Specialty Start Date End Date Rigo Oquendo MD [address] [place] [address] PCP - General Internal Medicine 04/16/20 documented as of this encounter
--- OUTSIDE RECORDS SUMMARY | 2025-03-07 14:28 | XMS_ITS | Encounter Summary ---
Author Organization [employer] Address 75 [facility] 7t [place] [address] Care Team Providers Care Hat Lining Paster Name Role Phone Rigo Oquendo MD Primary Care Provider [phone] Encounter Details Date Type Department Care Team (Late st Contact Info) Description 02/07/2024 Orders Only [facility] [address] [place] [address] ProviderLeonor MD Social History Tobacco Use Types [...] Procedure Name Priority Date/Time Associated Diagnosis Comments EGD Routine 02/07/2024 12:35 PM EDT documented in this encounter Results * EGD (02/07/2024 12:35 PM EDT) Anatomical Region Laterality Modality Endoscopy us Historical Provider ENDOSCOPY PROCEDURE ORDER BRANDY Final Result documented in this encounter Visit Diagnoses Not on filedocumented in this encounter Additional Health Concerns Assessment Noted Time PHQ-9 Depression Total Score: 0 10/16/19 23 9:36 AM EDT documented as of this encounter Care Teams Hat Lining Paster Relationship Specialty Start Date End Date Rigo Oquendo MD [address] [place] [address] PCP - General Internal Medicine 04/16/20 documented as of this encounter
--- OUTSIDE RECORDS SUMMARY | 2025-03-07 14:28 | XMS_ITS | Encounter Summary ---
Author Organization [employer] Address 75 [facility] 7 [place] [address] Care Team Providers Care Keeper Head Name Role Phone Rigo Oquendo MD Primary Care Provider [phone] Reason for Visit * Reason Onset Date Comments Nurse Triage 03/07/2025 Encounter Details Date Type Department Care Team ([facility] st Contact Info) Description 03/07/2025 Telephone [facility] MEDICINE [address] [place] [address] Rigo Oquendo MD [address] [place] [address] Nurse Triage Social History Tobacco Use Types Packs/Day Years [...] AM EDT documented as of this encounter Miscellaneous Notes * Telephone Encounter - Juvenal Echavarria RN - 03/07/2025 10:52 AM EST TC placed to pain. Patient c/o severe left mid back pain/muscle spasms that started on Wednesday. Patient denies any injury and the pain came on suddenly while he was folding clothes. Patient reported no pain relief with OTC medications and heat. Patient denies any numbness or tingling. RN advised patient to go the [facility] for further evaluation. This RN gave the patient days and hours of operation for the Walk in Center. Patient verbalized understanding. RN scheduled an appointment in the Walk in Center. Verbal report given to Charleen Desouza RN. Protocol Used: Back Pain (Adult) Protocol-Based Disposition: See in Office or Video Visit Today Video visit not offered Positive Triage Questions: * Severe back pain (e.g., excruciating, unable to do any normal activities) and not improved after pain medicine and Care Advice * Patient wants to be seen * Back pain * All higher-acuity triage questions were negative Care Advice Discussed: * Reassurance and Education - Back Pain * Continue Activity * Pain Medicines * Pain Medicines - Extra Notes and Warnings * Reasons To Call Back - Severe pain not better after taking pain medicines - Moderate pain (interferes with normal activities) lasts over 3 days - Pain begins to shoot into the leg - Pain lasts over 2 weeks - Fever occurs - Numbness or weakness occurs - Loss of control of your bladder or bowel - You become worse * Telephone Encounter - Portillo Vega - 03/07/2025 9:49 AM EST Symptom: Abdominal Pain - Female - Not Outcome: Schedule an appointment to be seen within 24 hours Reason: Caller denied all higher acuity questions Please contact pt at [phone]. documented in this encounter Plan of Treatment Not on file documented as of this encounter Visit Diagnoses Not on filedocumented in this encounter Additional Health Concerns Assessment Noted Time PHQ-9 Depression Total Score: 0 08/15/19 25 10:27 AM EDT documented as of this encounter Care Teams Keeper Head Relationship Specialty Start Date End Date Rigo Oquendo MD [address] [place] [address] PCP - General Internal Medicine 04/16/20 documented as of this encounter
--- OUTSIDE RECORDS SUMMARY | 2025-03-07 14:28 | XMS_ITS | Encounter Summary ---
Author Organization [employer] Address [address] [place] [address] [facility] [place] [address] Care Team Providers Care Transport Company Manager Name Role Phone Rigo Oquendo MD Primary Care Provider [phone] Reason for Referral * Consultation (Routine) - Closed Specialty Diagnoses / Procedures Referred By Contcolin t Referred To Contact Physical Therapy Diagnoses Bilateral hip pain Rigo Oquendo MD [address] [place] [address] Phone: tel: fax: [facility] [address] [place] [address] Phone: tel: fax: Referral ID Status Reason Start Date Expiration Date V isits Requested Visits Authorized [id number] Closed Specialty Services Required 08/07/2023 08/06/2024 1 1 Encounter Details Date Type Department Care Team ([facility] st Contact Info) Description 08/07/2023 Orders Only [facility] MED & PEDS [address] [place] [address] Rigo Oquendo MD [address] [place] [address] Bilateral hip pain (Primary Dx) Social History Tobacco Use Types Packs/Day Years [...] housing situation today? I have karl smith 03/01/[address] you [...] as of this encounter Plan of Treatment Scheduled Referrals Name Type Priority Associated Diagnoses Orde r Schedule Referral to Physical Therapy Outpatient Referral Routine Bilateral hip pain Expected: 08/07/2023 (Approximate), Expires: 08/06/2024 documented as of this encounter Visit Diagnoses Diagnosis Bilateral hip pain- Primary Pain in joint, pelvic region and thigh documented in this encounter Additional Health Concerns Assessment Noted Time PHQ-9 Depression Total Score: 0 10/16/19 23 9:36 AM EDT documented as of this encounter Care Teams Transport Company Manager Relationship Specialty Start Date End Date Rigo Oquendo MD [address] [place] [address] PCP - General Internal Medicine 04/16/20 documented as of this encounter
--- OUTSIDE RECORDS SUMMARY | 2025-03-07 14:28 | XMS_ITS | Encounter Summary ---
Author Organization [employer] Address [address] [facility] 7 [place] [address] Care Team Providers Care Recreational Vehicle Resort Manager Name Role Phone Rigo Oquendo MD Primary Care Provider [phone] Reason for Visit * Reason Onset Date Comments Nurse Triage 03/06/2024 Encounter Details Date Type Department Care Team ([facility] st Contact Info) Description 03/06/2024 Telephone [facility] MEDICINE [address] [place] [address] Rigo Oquendo MD [address] [place] [address] Nurse Triage Social History Tobacco Use Types [...] encounter Miscellaneous Notes * Telephone Encounter - Lora Le RN - 03/06/2024 9:22 AM EST Triage call Pt reports abdominal pain below umbilicus. Pt reports especially uncomfortable when bending at the waist. Pt reports pain as a cramping pain. Pt also has 3-4 episodes of liquid stool per day. Pt reports eats well, no pork or fried /greasy foods, some vegetables but, more fruit. Pt worksout daily and considers Pt to be healthy. Pt reports a feeling of hot flash at times. ASK apt in [facility] today at 1000am. Home care is reviewed and Insurance is verified as active prior to booking. Protocol Used: Abdominal Pain - Male (Adult) Protocol-Based Disposition: See in Office or Video Visit Today Video visit not offered Positive Triage Question: * Patient wants to be seen * All higher-acuity triage questions were negative Care Advice Discussed: * Reassurance and Education - Stomach Pain * Rest * Drink Clear Fluids * Reasons To Call Back - Severe pain lasts over 1 hour - Constant pain lasts over 2 hours - Intermittent pains (comes and goes, cramps) lasts over 48 hours - You become worse * Telephone Encounter - Sebas Espinoza - 03/06/2024 9:03 AM EST Symptom: Abdominal Pain - Male Outcome: Schedule an urgent appointment (within 4 hours) or talk to a nurse or provider soon Reason: Getting worse The caller accepted this outcome. documented in this encounter Plan of Treatment Not on file documented as of this encounter Visit Diagnoses Not on filedocumented in this encounter Additional Health Concerns Assessment Noted Time PHQ-9 Depression Total Score: 0 10/16/19 23 9:36 AM EDT documented as of this encounter Care Teams Recreational Vehicle Resort Manager Relationship Specialty Start Date End Date Rigo Oquendo MD [address] [place] [phone] PCP - General Internal Medicine 04/16/20 documented as of this encounter
--- OUTSIDE RECORDS SUMMARY | 2025-03-07 14:28 | XMS_ITS | Encounter Summary ---
Author Organization [employer] Address [address] [facility] 7t [place] [address] Care Team Providers Care Party Plan Sales Unit Advisor Name Role Phone Rigo Oquendo MD Primary Care Provider [phone] Encounter Details Date Type Department Care Team (Late st Contact Info) Description 03/01/2023 Abstract [facility] [address] [place] [address] Rigo Oquendo MD [address] [place] [address] Social History Tobacco Use Types Packs/Day Years [...] Procedure Name Priority Date/Time Associated Diagnosis Comments COLONOSCOPY Routine 01/18/2020 documented in this encounter Results * Colonoscopy (01/18/2020) Colonoscopy Normal Normal Narrative Judy Rai - 01/18/2020 Recommended 10 year follow up Historical Provider HEALTH MAINTENANCE Final Result documented in this encounter Visit Diagnoses Not on filedocumented in this encounter Additional Health Concerns Assessment Noted Time PHQ-9 Depression Total Score: 0 10/16/19 23 9:36 AM EDT documented as of this encounter Care Teams Party Plan Sales Unit Advisor Relationship Specialty Start Date End Date Rigo Oquendo MD [address] [place] [phone] PCP - General Internal Medicine 04/16/20 documented as of this encounter
--- OUTSIDE RECORDS SUMMARY | 2025-03-07 14:28 | XMS_ITS | Clinical Summary ---
Author Organization [employer] Address [address] [place] [address] 7t [place] [address] Care Team Providers Care Remote Control Assembler Name Role Phone Rigo Oquendo MD Primary Care Provider Allergies No known active allergies Medications Diclofenac Sodium 1 % gelIndications: Right hip pain To apply to the affected area 3 times a day 100 g 1 3 Active cholecalciferol (Vitamin D-3) 25 MCG (1000 UT) tabletIndicatio ns:Vitamin D deficiency Take 1 tablet (25 mcg) by mouth in the morning. 30 tablet 11 3 Active famotidine (Pepcid) 20 MG tabletIndicatio ns:Erosive gastritis Take 1 tablet (20 mg) by mouth 2 times daily. 60 tablet 11 4 Active Occlusive Silicone Strips (KP Silicone Scar Therapy Gel) stripIndication s:Hypertrophic scar of skin To use daily 30 strip 1 4 Active Diclofenac Sodium 1 % gelIndications: Muscle spasm,Low back pain radiating down leg To apply to the affected area 3 times a day 100 g 5 Active methocarbamol (Robaxin) 750 MG tabletIndicatio ns:Muscle spasm,Low back pain radiating down leg Take 1 tablet (750 mg) by mouth 4 times daily for 10 days. 40 tablet 5 Active meloxicam (Mobic) 15 MG tabletIndicatio ns:Muscle spasm Take 1 tablet (15 mg) by mouth Once per day. 30 tablet 11 5 10/13/19 26 Active methocarbamol (Robaxin) 500 MG tabletIndicatio ns:Muscle spasm Take 1 tablet (500 mg) by mouth every 6 (six) hours for 10 days. 40 tablet 5 Active nicotine (Nicoderm CQ) 14 MG/24HR patch Place 1 patch on the skin 1 (one) time each day at the same time. 42 patch 5 04/18/20 25 Active nicotine (Nicoderm CQ) 7 MG/24HR patch Place 1 patch on the skin 1 (one) time each day at the same time. 14 patch 5 04/06/20 25 Active nicotine polacrilex (Commit) 2 MG lozenge Dissolve 1 lozenge (2 mg) in the mouth if needed for smoking cessation. 100 lozenge 5 04/06/20 25 Active lidocaine (Lidoderm) 5 % patch Apply 1 patch topically Once per day. Remove & discard patch within 12 hours or as directed by MD. 30 patch 2 5 03/07/20 26 Active acetaminophen (Tylenol) 500 MG tablet Take 2 tablets (1,000 mg) by mouth every 6 (six) hours if needed for moderate pain or fever for up to 25 doses. 50 tablet 5 Active ibuprofen 400 MG tablet Take 1 tablet (400 mg) by mouth every 6 (six) hours if needed for moderate pain or fever for up to 30 doses. 30 tablet 5 Active tiZANidine (Zanaflex) 2 MG tablet Take 1 tablet (2 mg) by mouth every 6 (six) hours if needed for muscle spasms for up to 10 days. 30 tablet 5 03/17/20 25 Active Active Problems Problem Noted Date Diagnosed Date Normocytic anemia 08/14/2024 Smoking history 08/14/2024 Trichomonas exposure 03/31/2023 Assessment & Plan (03/31/2023 4:13 PM EST): Will treat for trichomiasis with metronidazole and will test for other STIs. Discussed prevention. Resolved Problems Problem Noted Date Diagnosed Date Resolved Date Microcytic anemia 01/08/2021 08/14/2024 Encounters Date Type Department Care Team Description 03/07/2025 2:00 PM EST Office Visit [facility] [address] [place] [phone] Acute left-sided low back pain without sciatica (Primary Dx); Smoking history 03/07/2025 Travel 03/07/2025 Telephone [facility] [address] [place] [address] Rigo Oquendo MD Nurse Triage 01/30/2025 Telephone [facility] [address] [place] [address] Rigo Oquendo MD No Show 01/29/2025 Telephone [facility] [address] [place], [place] [phone] Rigo Oquendo MD chart prep 12/28/2024 Telephone [facility] [address] [place], [place] [phone] Rigo Oquendo MD 12/05/2024 Results Follow-Up [facility] [address] [place], [place] [phone] Rigo Oquendo MD XR Nasal Bones from Last 3 Months Immunizations Immunization Administration Dates Next Due Pfizer Covid-19 Vaccine 12+ 08/26/2020 Tdap 12/17/2023,04/23/2015 Social History Tobacco Use Types Packs/Day Years Used Date Smoking Tobacco: Some Days Cigarettes 0.3 4 Passive Smoke Exposure: Never Smokeless Tobacco: Never Tobacco Cessation:Ready to Q uit: Not Asked; Counseling Given: Not Answered Alcohol Use Standard Drinks/Week Comments Defer 0 (1 standard drink = 0.6 oz pur e alcohol) Depression Answer Date Recorded Patient Health Questionnaire-9 Score 0 08/14/2024 Patient Health Questionnaire-9 Score 0 08/14/2024 Last PHQ-9: Questionnaire Data Not on file 0 08/14/2024 Housing Stability Answer Date Recorded What is your housing situation today? I have karl luis 08/07/[address] you li [...] not to disclose 2021 10:29 AM EDT Last Filed Vital Signs Vital Sign Reading [...] Mass Index 29.27 03/07/2025 11:35 AM EST Plan of Treatment Health Maintenance Due Date Last Done Comments CT Colonography 1970 FIT DNA/Cologuard 1970 FIT 1970 FOBT 1970 Sigmoidoscopy 1970 Disability Screening 1970 Hepatitis B Vaccines (1 of 3 - 19+ 3-dose series) 1989 Pneumococcal Vaccine: 50+ Years (1 of 2 - PCV) 1989 Zoster Vaccines (1 of 2) 2020 COVID-19 Vaccine (2 - season) 2025 08/26/2020 Influenza Vaccine (#1) 2025 Alcohol/Substance Use Screening 08/14/2025 08/14/2024 Depression Screening 08/14/2025 08/14/2024, 08/15/19 SDOH Screening 08/14/2025 08/14/2024 Lipid Panel 12/31/2025 12/31/2020 Tobacco Screening 03/07/2026 03/07/2025 Colonoscopy 01/17/2030 01/18/2020 Colorectal Cancer Screening 01/17/2030 DTaP/Tdap/Td Vaccines (3 - Td or Tdap) 12/16/2033 12/17/2023, 04/23/2015 RSV Patients and Patients Aged 60 years or older (1 - 1-dose 75+ series) 2045 HIV Screening Completed 12/01/2024, 08/2023, 03/31/2023, Additional history exists Hepatitis C Screening Completed 12/01/2024 , 01/05/2024, 03/31/2023, Additional history exists HIB Vaccines Aged Out No longer eligi [...] patient's age to complete this topic Meningococcal Vaccine Aged Out No margo joyce eligible based on patient's age to complete this topic RSV under 20 months Aged Out No longe r eligible based on patient's age to complete this topic Rotavirus Vaccines Aged Out No longer eligible based on patient's age to complete this topic Procedures Procedure Name Priority Date/Time Associated Diagnosis Comments XR LUMBAR SPINE 2-3 VIEWS Routine 03/07/2025 12:23 PM EST Acute left-sided low back pain without sciatica HEPATITIS C AB W/REFL TO HCV RNA, QN, PCR Routine 12/01/2024 2:12 PM EDT Routine screening for STI (sexually transmitted infection) HIV 1/2 ANTIGEN/ANTIBODY, FOURTH GENERATION W/RFL Routine 12/01/2024 2:12 PM EDT Routine screening for STI (sexually transmitted infection) LIPID PANEL, STANDARD Routine 12/31/2020 3:18 PM EDT HM COLONOSCOPY Routine 01/18/2020 from Last 3 Months or Most Recently Relevant to Health Maintenance Results * XR Lumbar Spine 2-3 Views (03/07/2025 12:23 PM EST) Anatomical Region Laterality Modality Spine, L-spine Radiographic Anni ging 03/07/2025 12:2 3 PM EST Narrative 03/07/2025 1:30 PM EST [address] [address] XRay Report Signed Patient: John Cochran MR#: [id number] 0301 : 1970 Acct:[id number] Age/Sex: 54 / M ADM Date: 03/07/25 Loc: HO.HHCX Attending Dr: Bhaskar Fleming MD Ordering Physician: BHASKAR FLEMING MD Date of Service: 03/07/25 Procedure(s): XR lumbar spine 2-3V Accession Number(s): [id number] cc: BHASKAR FLEMING MD; Rigo Oquendo MD [...] 03/07/25 1327 DD/ 1223 TD/TT: 03/07/25 1230 Molding Utility Worker: Procedure Note Donotuseinterpreter, Image - 03/07/[address] [address] XRay Report Signed Patient: John Cochran LMR#: [id number] 0301 : 1970Acct:[id number] Age/Sex: 54 / MADM Date: 03/07/25 Loc: HO.HHCX Attending Dr: Bhaskar Fleming MD Ordering Physician: BHASKAR FLEMING MD Date of Service: 03/07/25 Procedure(s): XR lumbar spine 2-3V Accession Number(s): [id number] cc: BHASKAR FLEMING MD; Rigo Oquendo MD [...] 03/07/25 1327 DD/ 1223 TD/TT: 03/07/25 1230 Molding Utility Worker: Bhaskar Fleming MD IMG XR PROCEDURES Final Result * Hepatitis C Antibody with Reflex to HCV, RNA, Quantitative, Real-Time PCR (12/01/2024 2:12 PM EDT) Hepatitis C Antibody Nonreactive Nonreactive [facility] Comment:Antibodies to HCV no t detected; does not exclude early acuteHCV infection. Blood Venous blood specimen / Unknown 12/01/2024 2:12 PM EDT 12/01/2024 3:45 PM EDT Rigo Oquendo MD LAB BLOOD ORDERABLES Final Result [facility] [address] [place] [phone] * HIV-1/2 Antigen and Antibodies, Fourth Generation, with Reflexes (12/01/2024 2:12 PM EDT) HIV AB/AG Nonreactive Nonreactive [facility] Comment:HIV-1 p24 Ag and/or HIV-1/HIV-2 Ab not detected.A test result that is nonreactive does not exclude thepossibility of exposure to or infection with HIV-1 and/orHIV-2. Nonreactive results in this assay for individualswith prior exposure to HIV-1 and/or HIV-2 may be due toantigen and antibody levels that are below the limit ofdetection of this assay.The SolulinkniBioapter HIV Ag/Ab Combo assay result andsupplemental assay results should be interpreted inconjunction with the patient's clinical presentation,history and other laboratory results. If the results areinconsistent with clinical evidence, additional testing issuggested to confirm the result. Blood Venous blood specimen / Unknown 12/01/2024 2:12 PM EDT 12/01/2024 3:45 PM EDT Rigo Oquendo MD LAB BLOOD ORDERABLES Final Result Performing Organization Address [facility]/State/ZIP Co de Phone Number [facility] [address] [place] [phone] [phone] * LIPID PANEL, STANDARD (12/31/2020 3:18 PM EDT) Chol/HDLC Ratio 3.0 <5.0 (calc) [facility] Cholesterol, Total 135 <200 mg/dL [facility] HDL Cholesterol 45 > OR = 40 mg/dL [facility] LDL Cholesterol 74 mg/dL (calc) [facility] Comment: Reference range: <100 Desirable range <100 mg/dL for primary prevention; <70 mg/dL for patients with CHD or diabetic patients with > or = 2 CHD risk factors. LDL-C is now calculated using the Eli calculation, which is a validated novel method providing better accuracy than the Friedewald equation in the estimation of LDL-C. Yadiel SS et al. ESHA. 2013;310(19): 2893-6273 (http://education.swabr.Excel PharmaStudies/faq/WWE336) Non-HDL Cholesterol 90 <130 mg/dL (calc) [facility] Comment: For patients with diabetes plus 1 major ASCVD risk factor, treating to a non-HDL-C goal of <100 mg/dL (LDL-C of <70 mg/dL) is considered a therapeutic option. Triglycerides 79 <150 mg/dL [facility] 12/31/2020 3:18 PM EDT Rigo Oquendo MD LAB BLOOD ORDERABLES Final Result [facility] [address] [place] [address], * Hm Colonoscopy (01/18/2020) Colonoscopy Normal Normal Narrative Judy Rai - 01/18/2020 Recommended 10 year follow up Historical Provider MD HEALTH MAINTENANCE Final Result from Last 3 Months or Most Recently Relevant to Health Maintenance Insurance C3 Care Teams Remote Control Assembler Relationship Specialty Start Date End Date Rigo Oquendo MD [address] [place] [phone] PCP - General Internal Medicine 04/16/20
== END 2025-03-07 11:49 | disposition home or self-care (01) ==
LOC: HO.HHCX 11:48
PROVIDERS: PCP Internal Medicine; Visit Provider Emergency Medicine
DX: M54.50 Low back pain, unspecified (principal)
CPT/HCPCS: 72100

== ENCOUNTER → 2025-03-07 12:01 | Outpatient (BNV) | payer MEDICAID, SELFPAY | PROVIDERS: PCP Internal Medicine; Visit Provider Radiology Diagnostic Radiology | DX: M51.360 Other intervertebral disc degeneration, lumbar region with discogenic back pain only (principal) | CPT/HCPCS: 72100 ==